=== PATIENT | male | born 2005 | race Caucasian/White ===

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

== ENCOUNTER 2024-02-12 09:57 | Emergency (ER) | payer BC ==
[~2024-02-12] VITALS: Ht 190.5 cm; Wt 69.8 kg
[~2024-02-12 09:57] MED LIST: CIPR500T4 PO; HYDR-4902 PO; METR500T PO; ONDA-144 PO
[2024-02-12 11:31] VITALS: BP 127/78; PULSE 78; RESP 17; TEMP 97.9; O2SAT 97
== END 2024-02-12 12:06 | disposition home or self-care (01) ==
LOC: ER 09:57
DX: R51.9 Headache, unspecified (principal); V89.2XXA Person injured in unspecified motor-vehicle accident, traffic, initial encounter; Y93.89 Activity, other specified; Y92.89 Other specified places as the place of occurrence of the external cause; Y99.8 Other external cause status
CPT/HCPCS: 70450